=== PATIENT | female | born 1985 | race Caucasian/White ===

== ENCOUNTER 2019-07-10 17:47 | Emergency (ER) | payer OTHER ==
[~2019-07-10] VITALS: Ht 160 cm; Wt 98.0 kg
[~2019-07-10 17:47] MED LIST: AMBIEN10 MG PO; BENADRYL25 MG PO; CITALOPRAM HBR40 MG PO; CLARITIN10 MG PO; DELTASONE20 MG PO; EFFEXOR XR150 MG PO; EPIPEN 2-P0.3 MG/0.3 IM; HYDROXYZINE HCL50 MG PO; LATUDA20 MG PO; PREDNISONE20 MG PO
[2019-07-10] MEDS ORDERED: NAPROXEN500 MG PO (23:25)
== END 2019-07-10 23:45 | disposition home or self-care (01) ==
LOC: ED 17:47
DX: N83.201 Unspecified ovarian cyst, right side (principal); Z88.0 Allergy status to penicillin; Z88.2 Allergy status to sulfonamides; Z79.52 Long term (current) use of systemic steroids; Z79.899 Other long term (current) drug therapy
CPT/HCPCS: 36415; 74177; 80053; 81001; 83690; 84703; 85025; 99284-25; Q9967

== ENCOUNTER 2021-09-11 14:15 | Emergency (ER) | payer OTHER ==
[~2021-09-11] VITALS: Ht 160 cm; Wt 98.9 kg
[~2021-09-11 14:15] MED LIST changes: +ADVIL200 MG PO; +NAPROXEN500 MG PO
--- OUTSIDE RECORDS SUMMARY | 2021-09-11 14:22 | XMS ---
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 Anita has no Care Guidelines for this patient. Anjum VISIT COUNT (12 MO.) 1 ANTHONY Collins TOTAL 1 NOTE: Visits indicate total known visits. ED/C VISIT TRACKING (12 MO.) 09/11/2021 14:15 ANTHONY [facility] OR TYPE: Emergency COMPLAINT: - CHEST PAIN INPATIENT VISIT TRACKING (12 MO.) No inpatient visits to display in this time frame [email or web address]
[2021-09-11] MEDS ORDERED: BUSPIRONE HCL5 MG PO (14:41)
--- NOTE | 2021-09-12 15:01 | EKG ---
[facility] [address] [facility] [place], [place] [address] Signed Normal sinus rhythm Cannot rule out Inferior infarct (cited on or before 11-SEP-2021) Cannot rule out Anterior infarct (cited on or before 11-SEP-2021) Abnormal ECG When compared with ECG of 11-SEP-2021 14:31, (Unconfirmed) No significant change was found Confirmed by WANG FORD MD ([id number]) on 09/12/2021 3:00:42 PM Electronically Signed By: WANG FORD MD 09/12/21 1501 PATIENT NAME: MIKEL RADFORD Electrocardiogram DATE OF : 81 PHYSICIAN: WANG FORD MD REPORT #: [id number] REPORT IS CONFIDENTIAL AND NOT TO BE RELEASED WITHOUT AUTHORIZATION
== END 2021-09-11 17:27 | disposition home or self-care (01) ==
LOC: ED 14:15
DX: R07.9 Chest pain, unspecified (principal); Z90.49 Acquired absence of other specified parts of digestive tract; Z88.2 Allergy status to sulfonamides; Z88.0 Allergy status to penicillin; Z79.899 Other long term (current) drug therapy
CPT/HCPCS: 71045; 80053; 83735; 84484; 85025; 93005; 93010; 99285-25